=== PATIENT | female | born 1990 | race Hispanic/Latino ===

== ENCOUNTER → 2025-05-06 16:19 | Outpatient (CLI) | payer OTHER, SELFPAY ==
--- NOTE | 2025-05-06 16:25 | DI.RAD.S_ITS ---
PROCEDURE: XR ANKLE LT 2V INDICATIONS: RULE OUT DISLOCATION/FRACTURE TECHNIQUE: Two views of the ankle were acquired. COMPARISON: None. FINDINGS: Bones: No fractures or dislocations. Ankle mortise is normally aligned. No suspicious bony lesions. Soft tissues: No tibiotalar joint effusion. Achilles tendon appears normal. IMPRESSION: No acute bony abnormality or significant effusion. Dictated by: Swetha Cisneros M.D. on 05/07/2025 at 14:27 Approved by: Swetha Cisneros M.D. on 05/07/2025 at 14:27
== END ==
PROVIDERS: Referring Provider Nurse Practitioner; Visit Provider Nurse Practitioner
DX: S99.912A Unspecified injury of left ankle, initial encounter (principal); X58.XXXA Exposure to other specified factors, initial encounter
CPT/HCPCS: 73600